=== PATIENT | female | born 1955 | race Caucasian/White ===

== ENCOUNTER → 2022-08-23 15:21 | Outpatient (CLI) | payer MEDICARE, SELFPAY ==
[2022-08-23 16:24] LABS: Add Manual Diff / Slide Review NO; Basophils Absolute Auto 100 /uL (0-100); Basophils Percent Auto 1.3 % (0-2); Eosinophils Absolute Auto 200 /uL (0-450); Eosinophils Percent Auto 3.1 % (2-4); Hematocrit 39.7 % (36-46); Hemoglobin 13.1 g/dL (12.0-16.0); Lymphocytes Absolute Auto 1300 /uL (1100-4500); Lymphocytes Percent Auto 22.7 % (25-40); Mean Corpuscular HGB Conc 33.1 % (30-36); Mean Corpuscular Hemoglobin 29.6 PG (26-34); Mean Corpuscular Volume 89.5 fL (80-100); Monocytes Absolute Auto 400 /uL (0-900); Monocytes Percent Auto 6.6 % (3-14); Neutrophils Absolute Auto 3900 /uL (1500-7000); Neutrophils Percent Auto 66.3 % (50-75); Platelet Count 216 X10^3/uL (150-400); Red Blood Cell Count 4.44 X10^6/uL (4.0-5.2); Red Cell Distribution Width 13.6 % (11.6-14.8); White Blood Cell Count 5.9 X10^3/uL (4.5-11.0)
[2022-08-23 16:45] LABS: BUN Creatinine Ratio 33.3 (6-22); Blood Urea Nitrogen 26 mg/dL (7-17); Calcium 8.6 mg/dL (8.4-10.2); Carbon Dioxide 28 mmol/L (22-32); Chloride 105 mmol/L (98-107); Estimated Glomerular Filt Rate > 60 mL/min (>60); Glucose 94 mg/dL (80-110); HEMOLYSIS < 15 (0-50); Hemoglobin A1C% w Est Avg Glu 4.9 % (4.0-6.0); Sodium 139 mmol/L (137-145)
[2022-08-23 16:48] LABS: Appearance Urine UA CLEAR; Bilirubin Urine UA NEGATIVE (NEGATIVE); Color Urine UA YELLOW; Glucose Urine UA NEGATIVE (Negative); Ketones Urine UA NEGATIVE (NEGATIVE); Leukocyte Esterase Urine UA NEGATIVE (NEGATIVE); Nitrite Urine UA NEGATIVE (Negative); Occult Blood Urine UA NEGATIVE (Negative); Protein Urine UA TRACE (Negative); Specific Gravity Urine UA 1.025 (1.000-1.035); Urobilinogen Urine UA 0.2 E.U./dL (0.2)
[2022-08-23 17:10] LABS: RBC Urine None Seen (0-5/HPF); Squamous Epithelial Cell Urine 1-5 /HPF (0-5/HPF); WBC Urine 0-1/HPF (0-5/HPF)
[2022-08-23 17:11] LABS: Bacteria Urine None Seen; Culture Indicated Urine Cult Not Indicated
== END ==
PROVIDERS: Referring Provider Orthopaedic Surgery; Visit Provider Orthopaedic Surgery
DX: Z01.818 Encounter for other preprocedural examination (principal); R73.9 Hyperglycemia, unspecified; Z01.812 Encounter for preprocedural laboratory examination; N39.0 Urinary tract infection, site not specified
CPT/HCPCS: 36415; 80048; 81001; 83036; 85025; 93005

== ENCOUNTER 2022-11-26 11:53 | Day surgery (SDC) | payer MEDICARE, SELFPAY ==
[2022-11-20 09:43] VITALS: BMI 23.9
[2022-11-26] VITALS (11 sets, daily range): BP systolic 115–171; BP diastolic 49–90; PULSE 62–77; RESP 12–18; TEMP 36.3–36.9; O2SAT 73–100; BMI 23.9
--- NOTE | 2022-11-26 06:00 | DI.RAD.S_ITS ---
PROCEDURE: XR HIP W PEL IF DONE LT 2V INDICATIONS: DOMINGA TECHNIQUE: AP pelvis and lateral view of the left hip acquired. COMPARISON: None. FINDINGS: Bones: Patient is status post left hip arthroplasty, with hardware components in expected positions. The hip joint appears congruent. The visualized bony structures appear intact. Soft tissues: Overlying postoperative changes are noted. No suspicious soft tissue densities. IMPRESSION: Total left hip arthroplasty in good position Approved by: Juan C Castillo M.D. on 11/27/2022 at 15:04
[2022-11-26] MEDS: VANCOMYCIN 1,000 MG/200 ML PIGGYBACK 200 MG IV (12:15)
[2022-11-26] MEDS: ACETAMINOPHEN 325 MG TABLET 975 MG PO (12:25)
[2022-11-26] MEDS: CELECOXIB 200 MG CAPSULE PO (12:25)
[2022-11-26] MEDS: LACTATED RINGERS 1,000 ML 42 ML IV ×2 (12:28→14:18)
--- NOTE | 2022-11-26 12:56 | PM.PREOP ---
Pre-operative Note COVID-19 COVID-19 status: Negative Interval Note History & Physical reviewed/Exam performed by Physician: Yes Changes to H&P: No
--- NOTE | 2022-11-26 12:57 | PM.OP.1 ---
Operative Date/Time/Diagnoses Date of procedure: 11/26/22 Time of procedure: 13:30 Pre-op diagnosis: Left hip osteoarthritis Post-op diagnosis: same Procedure & Clinicians Procedure: Left total hip arthroplasty anterior approach Same procedure as scheduled: Yes Indications: The patient has had progressively worsening left hip pain with radiographic changes consistent with arthritis. Non-operative management has failed and the patient has requested total hip replacement. The risks, benefits and alternatives to surgery were discussed with the patient prior to proceeding. Risks discussed included, but were not limited to, failure to relieve pain, leg length discrepancy, dislocation, stiffness, infection, nerve damage, deep venous thrombosis, pulmonary embolism, stroke, coma, heart attack, permanent paralysis and , as well as the potential need for eventual revision of the prosthetic. Surgeon: Emelia Salazar Ampoule Washing Machine Operator: Paulino Alegria Anesthesia Type: General and Spinal Operative Notes Findings: Severe left hip arthritis, adequate stability Closure Type: primary Specimen(s): none sent Prosthetic devices, grafts, tissues, transplants, or devices: Salazar and nephew size 46 R3, anthology standard offset size 3, neutral poly liner,one 6.5 mm screw, 28 by -3 oxinium Estimated Blood Loss (mL): 250 Blood products transfused: none Procedure in detail: The patient was brought to the operating room. Patient was carefully positioned in the supine position. Time-out was performed and antibiotics were given. Anesthesia was induced. She was positioned in the on the table in order to allow hyperextension of the hip. The left lower extremity was prepped and draped in a standard sterile fashion. An anterior left hip incision was made 1 fingerbreadth lateral to the anterior superior iliac spine and extended distally towards the greater trochanter. Dissection was carried out through skin and subcutaneous tissues. Superficial hemostasis was achieved. The fascia over the tensor fascia derik was defined and incised with a knife. Two Allis clamps were used to grasp the fascia. Tensor fascia derik was retracted laterally. A gelpi retractor was placed. Dissection was carried out down along the neck. The circumflex vessels were carefully identified and cauterized with the Aqua Mantis. There was good visualization of the femoral neck. A Cobra was placed superior to the neck and the gluteus fibers were carefully stripped from that superior aspect of the capsule. A 2nd retractor was placed along the inferior aspect of the neck. The rectus insertion along the capsule was partially released. A 3rd retractor that was then gently placed over the rim of the acetabulum under the rectus. Capsule was carefully incised and released from the intertrochanteric line circumferentially superior to the mid sagittal line and inferiorly to the mid sagittal line until the lesser trochanter was palpable. A tag stitch was placed both in the superior and inferior limb of the capsular insertion. Along the acetabulum capsule was also released up to the mid sagittal 12:00 position. A portion of the labrum was resected. A saw was used to perform an osteotomy at the level of the intertrochanteric line and the junction of the superior femoral neck leaving approximately 1 finger breath of residual inferior neck above the lesser trochanter. A 2nd cut was made along the femoral neck at the base of the head and a napkin ring of neck was removed. Corkscrew was placed in the femoral head and the head was removed without difficulty. Retractors were then repositioned around the acetabulum. Residual labrum was resected and additional osteophytes were removed. A reamer that was 4 mm below the templated size was placed by hand in the acetabulum and it was reamed to centralize the acetabulum. It was then reamed up to 2 under the templated size and fluoroscopy was brought in to confirm the position of the reaming and depth of reaming. I reamed 1 under the anticipated size. A trial cup was placed and noted that it was appropriately sized and fluoroscopy confirmed position and depth. The component was open and inserted without difficulty fluoroscopic imaging was used to confirm that the cup had been adequately seated and was well positioned. It was further stabilized with a single screw. Neutral poly liner was placed. The cup was tested and noted to be stable. Attention was then directed to the femur. The femur was gently hyperextended additional capsular release was performed as needed in order to allow adequate visualization of the proximal femur with elevation of the femur. Patient was placed in a hyperextended slightly adducted position with maximum external rotation. Box osteotome was used to check for any residual neck as well as sclerotic bone along the trochanter. [place] pepper was placed in the femur. Additional broaching was performed. Canal finder was used to determine the alignment of the canal and position. Size 1 broach was placed. The canal was then appropriately broached up to the templated size as long as there was adequate stability of the broach and serial advancement of the broach without excessive impingement. Specific attention was directed at avoiding varus attempting to direct the distal aspect of the broach more anteriorly and avoiding excessive anteversion. Trial reduction showed acceptable range of motion, good stability, no posterior impingement, mosque of leg length and appropriate lateral shuck. I also hyperflexed the hip and checked that there was no impingement anteriorly and there was good stability with flexion, adduction and internal rotation. Marcaine and Exparel were injected. The stem was placed without difficulty. Repeat trial reduction and x-ray showed acceptable overall position, length, and no evidence of the femoral fracture. Final head was placed. Wound was meticulously irrigated with normal saline. The hip was reduced and additional Exparel and Marcaine were injected. The capsule was closed with interrupted nonabsorbable sutures. The fascia of the tensor was closed with interrupted and running Vicryl. No drain was placed. Any tensor fascia derik muscle that appeared to be contused or injured which was a minimal amount was carefully resected. Capsule around the tensor was injected with Exparel and Marcaine. The skin was closed with barbed stitches for the subcutaneous tissue and skin. We also used surgical glue. The wound was dressed sterilely. Brief Betadine soak was also used and was meticulously irrigated with normal saline. Patient was transferred to recovery room in satisfactory condition. Complications: none Post-operative Condition: stable Disposition: Acute Care Plan for aftercare: The patient will be maintained on a standard total hip replacement protocol with weight bearing as tolerated and anterior hip precautions. The patient will receive Aspirin and sequential compression devices for DVT prophylaxis. The patient will be discharged home when safe for the home environment.
[2022-11-26] MEDS: CEFAZOLIN 2 GM/100 ML PREMIX 100 ML IV ×2 (13:20→20:28)
--- NOTE | 2022-11-26 13:57 | SUR.OPER ---
Right foot previous injury, multiple bruising sites from toes across foot.
--- NOTE | 2022-11-26 14:00 | SUR.OPER ---
Patient supine on padded [place] table, one arm on padded arm board at <90, other arm padded and secured with tape across patient's chest, both legs secured in padded traction boots and positioned per surgeon, padded post at patient's groin, pressure points checked and padded.
[2022-11-26] MEDS: BUPIVACAINE LIPOSOME 266 MG/20 ML VIAL INJ (14:14)
[2022-11-26] MEDS: TRANEXAMIC ACID 1,000 MG VIAL 2000 MG INJ ×2 (14:19→15:24)
[2022-11-26] MEDS: BUPIVACAINE 0.25% (PF) VIAL 60 ML INJ (14:20)
[2022-11-26] MEDS: BUPIVACAINE 0.25% (PF) 60 ML, EPINEPHrine 0.3 MG INJ (14:21)
[2022-11-26] MEDS: SODIUM CHLORIDE IRRIG SOLUTION 250 ML, POVIDONE-IODINE SPONGE STICKS 1 APPLIC IRR (15:23)
--- NOTE | 2022-11-26 15:48 | DI.RAD.S_ITS ---
PROCEDURE: [id number] W PEL IF PERFORMED INDICATIONS: INTEROPERATIVE TOTAL LEFT HIP ANTERIOR APPROACH TECHNIQUE: AP pelvis with lateral view(s) of the left hip(s). [facility]26/[facility]22, 15:45. FINDINGS: Fluoroscopic guidance utilized for a left total hip arthroplasty placement. IMPRESSION: Fluoroscopic guidance utilized for a left total hip arthroplasty placement. Dictated by: Saw Zarate M.D. on 11/26/2022 at 17:03 Approved by: Saw Zarate M.D. on 11/26/2022 at 17:04
--- NOTE | 2022-11-26 15:57 | SUR.PHASEI ---
Report given to Gita
[2022-11-26 16:08] LABS: COVID19 -Nasal RAPID Negative (Negative)
--- NOTE | 2022-11-26 16:19 | SUR.PHASEI ---
Report called to Penelope Mccann.
--- NOTE | 2022-11-26 16:37 | SUR.PHASEI ---
Patient transferred to the floor with her belongings bag and black bag. Report given to Penelope Batista VS stable. Dressing CDI. IV patent.
[2022-11-26] MEDS: IBUPROFEN 400 MG TABLET PO (17:59)
[2022-11-26] MEDS: LACTATED RINGERS 1,000 ML 125 ML IV (18:00)
[2022-11-26] MEDS: OXYCODONE IR 5 MG TABLET PO (18:00)
[2022-11-26] MEDS: ACETAMINOPHEN 325 MG TABLET 650 MG PO (18:00)
[2022-11-26] MEDS: OXYCODONE IR 10 MG TABLET PO (19:28)
[2022-11-26] MEDS: DOCUSATE 100 MG CAPSULE PO (20:27)
[2022-11-26] MEDS: ASPIRIN EC 81 MG TABLET PO (20:27)
--- NOTE | 2022-11-26 23:40 | PC.NURSE ---
Patient is alert and oriented. Breath sounds CTA with RA sat of 98%. HRR. Denies nausea. BT hypoactive and has not passed flatus; reports having had BM just prior to surgery. Had not voided since pre-op so was gotten out of bed with 2 assists + walker and voided 500cc. When getting out of bed kept leaning forward and became very sweaty and pale. Needing lots of instruction and cueing so placed on external catheter once back in bed. Is able to turn self; staff assists as needed to place pillows. Aquacel dressing is CDI. Was given pain medication at shift change and stated pain was much improved. CMS intact except for minimal numbness in left foot and is unable to lift leg off bed. Has abrasions and bruising on right foot/lower leg from dropping a table on her foot prior to admission. Wearing bilateral calf SCD's. Fall risk score is moderate and bed alarm is activated.
[2022-11-27] MEDS: IBUPROFEN 400 MG TABLET PO ×3 (00:04→12:57)
[2022-11-27] MEDS: ACETAMINOPHEN 325 MG TABLET 650 MG PO ×3 (00:04→12:57)
[2022-11-27 01:46] VITALS: BP 137/62; PULSE 72; RESP 18; TEMP 36.3; O2SAT 98
[2022-11-27] MEDS: LACTATED RINGERS 1,000 ML 125 ML IV (02:35)
[2022-11-27] MEDS: CEFAZOLIN 2 GM/100 ML PREMIX 100 ML IV (03:34)
[2022-11-27 05:10] VITALS: BP 132/60; PULSE 68; RESP 17; TEMP 36.1; O2SAT 98
[2022-11-27 06:09] LABS: Hematocrit 29.3 % (36-46); Hemoglobin 9.9 g/dL (12.0-16.0)
--- NOTE | 2022-11-27 07:05 | P.DS_ITS ---
History of Present Illness History of Present Illness Date Patient Seen: 11/27/22 Time Patient Seen: 07:05 Chief complaint: Hip pain Narrative: Hip pain has been [id number]. Denies fever or chills. No nausea vomiting. Patient does have somebody available to assist her at home. Discharge Providers Provider Discharge Date: 11/27/22 Primary care physician: Faustino Warner MD Consults: 11/26/22 06:00 Consult to Anesthesiology Routine Comment: Consulting Provider: Anesthesiologist Reason for consultation: Regional block for post operative pain control 11/26/22 16:38 Consult to Discharge Planning Routine Comment: Consult to Physical Therapy Evaluate & Treat Comment: Physician Instructions: post op DOMINGA protocol Discharge provider: Paulino Alegria PA-C Summary Hospital Course Discharge Diagnosis: Severe left hip osteoarthritis Hospital Course: Left total hip arthroplasty anterior approach Same procedure as scheduled: Yes Indications: The patient has had progressively worsening left hip pain with radiographic changes consistent with arthritis. Non-operative management has failed and the patient has requested total hip replacement. The risks, benefits and alternatives to surgery were discussed with the patient prior to proceeding. Risks discussed included, but were not limited to, failure to relieve pain, leg length discrepancy, dislocation, stiffness, infection, nerve damage, deep venous thrombosis, pulmonary embolism, stroke, coma, heart attack, permanent paralysis and , as well as the potential need for eventual revision of the pro sthetic. Surgeon: Emelia Salazar Process Controls Technician: Paulino Alegria Anesthesia Type: General and Spinal Operative Notes Findings: Severe left hip arthritis, adequate stability Closure Type: primary Specimen(s): none sent Prosthetic devices, grafts, tissues, transplants, or devices: Salazar and nephew size 46 R3, anthology standard offset size 3, neutral poly liner,one 6.5 mm screw, 28 by -3 oxinium Estimated Blood Loss (mL): 250 Blood products transfused: none Patient admitted to the hospital for left total hip arthroplasty, anterior approach. Patient consented to the same. Patient taken operating room on November 26, 2022 underwent left total hip arthroplasty, anterior approach. Patient back in her room recovering well as in stable condition. Patient to mobilize with physical therapy. Weightbearing as tolerated with anterior hip precautions. Discharge home today after physical therapy if safe for home environment. Exam Vital Signs (past 8 hours): - 11/27/22 01:46 11/27/22 05:10 Temperature 97.3 F L 97.0 F L Pulse Rate 72 68 Respiratory Rate 18 17 Blood Pressure 137/62 132/60 Pulse Oximetry 98 98 Oxygen Flow Rate 0 0 Oxygen Delivery Method Room Air Oxygen Flow Rate 0 Narrative Exam Narrative: Pleasant 67-year-old female resting comfortably in bed in no apparent distress. Left hip dressing is clean, dry and intact. Motor functions intact bilateral lower extremities. Sensation grossly intact to light touch bilateral lower extremities. Const General: cooperative and comfortable Orientation: alert Resp Effort & Inspection: normal respiratory effort and able to speak in complete sentences Objective Labs 11/27/22 05:20 Labs: Laboratory Results - last 24 hr 11/26/22 11/27/22 15:45 05:20 Hgb 9.9 L Hct 29.3 L SARS-CoV-2 (PCR) Negative [facility] Medical History Anesthesia complication COVID-19 virus infection (04/2022) Depression Easy bruisability Fibromyalgia Foot injury (~11/10/22) DAWNA (obstructive sleep apnea) Osteoarthritis Pre-diabetes Seasonal allergies Surgical History History of carpal tunnel surgery of left wrist History of carpal tunnel surgery of right wrist History of uvulopalatopharyngoplasty Hx of dilation and curettage Social History household members: none Smoking Status: Never smoker alcohol intake: current Discharge Assessment & Plan Assessment and Plan Assessment: Patient progressing as expected status post left total hip arthroplasty, anterior approach Plan of Treatment: Weight-bearing as tolerated, anterior hip precautions Multimodal pain management Discharge home today after physical therapy if safe for home environment. Discharge Plan Discharge Plan Patient Disposition: Home Discharge orders & Medications Discharge Orders: Discharge (Order); Ordered 11/27/22 Ordered By: Paulino Alegria Prescriptions: New acetaminophen 325 mg Tablet 650 mg PO Q6HR Qty: 60 0RF aspirin 81 mg Tablet,Delayed Release (Dr/Ec) 81 mg PO BID Qty: 60 0RF ibuprofen 400 mg Tablet 400 mg PO Q6HR Qty: 60 0RF docusate sodium 100 mg Capsule 100 mg PO BID Qty: 10 0RF Discontinued aspirin 325 mg Tablet 650 mg PO BID Patient Comments: alternating with Ibuprofen ibuprofen 200 mg Tablet 400 mg PO BID Follow up/Referrals: Faustino Warner MD [Primary Care Provider] - Emelia Salazar MD [Physician] - (2 weeks as scheduled) Diet/Activity/Treatments Diet: Diet as Tolerated Activity: Weight-bearing as tolerated, anterior hip precautions Cold/Heat Therapy: Ice as needed Skin/Wound/Dressing Care Report to your healthcare provider any signs of infection, such as:: chills, fever, night sweats, increased pain, unusual drainage and unusual redness Dressing: Keep dressing clean and dry Visit Report/Discharge Packet Instructions: DI for Hip Replacement Stand Alone Forms: Patient Portal/API, Surgery Discharge Discharge Data Primary Care Provider: Faustino Warner Attending Provider: Emelia Salazar Quality VTE Deep Vein Thrombosis/Pulmonary Embolism Present on Admission: No
--- NOTE | 2022-11-27 09:41 | PT.IIE ---
Current Diagnoses Unilateral primary osteoarthritis, left hip (11/26/22) Surgery Performed Operation Date: 11/26/22 13:45 Actual Procedures p Total Hip Arthroplasty/Anterior Approach(Left) - Emelia Salazar MD Surgical History (Last Reviewed 11/27/22 @ 07:07 by Paulino Alegria PA-C) History of carpal tunnel surgery of left wrist History of carpal tunnel surgery of right wrist History of uvulopalatopharyngoplasty Hx of dilation and curettage Medical History (Last Reviewed 11/27/22 @ 07:07 by Paulino Alegria PA-C) Anesthesia complication COVID-19 virus infection (04/2022) Depression Easy bruisability Fibromyalgia Foot injury (~11/10/22) DAWNA (obstructive sleep apnea) Osteoarthritis Pre-diabetes Seasonal allergies Physical Therapy Inpatient Evaluation/Re-Eval M1 PT/OT-IP Prior Functional Status Start: 11/27/22 08:18 Freq: NEEDED Status: Active Protocol: Document 11/27/22 09:41 DLM (Rec: 11/27/22 09:57 DLM [id number]) Medical Review Prior Functional Status Medical History Reviewed Yes Diet/Fluid Consistency Regular Communication WFL, glasses for reading Mobility and Gait Independent without device, likes to walk but distances have been limited due to hip pain before surgery Activities of Daily Living and IADL's Independent Social History Household Members none Living Arrangements House Number of Floors (Floors) One Floor Number of Stairs To Enter/Railing? none Home Environment Tub/Shower Home Equipment Front Wheel Walker Employment Status Retired Additional Social History Comment she has a friend from [place] who will stay with her at discharge to help, friend has home health background M2 PT-IP Current Condition Start: 11/27/22 08:18 Freq: NEEDED Status: Active Protocol: Document 11/27/22 09:41 DLM (Rec: 11/27/22 09:57 DLM [id number]) Physical Therapy Current Condition Current Condition Evaluation Date 11/27/22 Treatment Diagnosis left total hip arthroplasty with anterior approach, impaired gait and pain Onset Date 11/26/22 M3 PT-IP Subjective Start: 11/27/22 08:18 Freq: NEEDED Status: Active Protocol: Document 11/27/22 09:41 DLM (Rec: 11/27/22 09:57 DLM [id number]) Subjective Physical Therapy Visit Type Type Initial Evaluation Visit Start Time 09:00 Visit Stop Time 09:41 Total Visit Minutes 41 Number of STATEMENT PROCESSOR Visits 0 Physical Therapy Visit Comments Patient Comments She does not feel she is ready to go home. She did not sleep well due to the bed making noise. She reports feeling like she has no control over her leg Patient Goals Discharge home with friend to assist Therapy Pain Assessment Pain When Pain Assessed After Treatment Pain Present Pain Present Pain Reported Location Left Anterior Hip Intensity 6 Scale Used Numeric (0 - 10) Description Aching,Tender,With Movement Pain Behaviors Facial Grimacing,Guarding Pain Management Techniques Apply Cold,Re-positioning M4 PT-IP Mobility and Gait Start: 11/27/22 08:18 Freq: NEEDED Status: Active Protocol: Document 11/27/22 09:41 DLM (Rec: 11/27/22 09:57 DL [id number]) PT-Bed Mobility Assessment Supine to Sit Supine to Sit Minimal Assistance Sit to Supine Sit to Supine Minimal Assistance Scooting Scooting to Edge of Bed Independent PT-Transfer Assessment Sit to and From Stand Sit to and from Stand Standby Assistance,Use of Upper Extremities Equipment Transfer Assistive Device Gait Belt,Front Wheeled Walker Transfers Transfer Destination Bed,Chair Transfer Technique Stand Step Pivot Transfer Ability Level of Assist Standby Assistance,Use of Upper Extremities Comments Mobility Comments She needs assistance to get left LE in and out of bed. She does better on left side of bed than right which is the side she will be using at home . She needs verbal cues to use UE assist to assist with sit- stand. She has increased pain sitting in the recliner if she does not kick left LE out before sitting. Pt left up in recliner with feet up and ice in incisional area. Gait Assessment Gait Gait Assistance Required: Standby Assistance Distance (Feet) 50 Able to Maintain Weight Bearing Status Yes During Gait Assistive Devices Assistive Device Gait Belt,Front Wheeled Walker Gait Deviations General Gait Pattern Antalgic,Decreased Stride Length Factors Limiting Gait Function Factors Limiting Gait Function Decreased Activity Tolerance, Decreased Strength,Difficulty Following Directions,Pain,Poor Balance Comments Gait Comments She demonstrates safe use of FWW, she is able to use her UE 's to assist with weight bearing to manage her pain, she has difficulty lifting Left LE off floor due to anterior hip pain Stair Climbing Assessment Comments Stair Climbing Comments she has no steps she has to negotiate at home to get in her one level house, she will not be doing the steps up to the tub at this time PT-Balance Assessment Sitting Balance and Reactions Static Sitting Balance Ability Normal Dynamic Sitting Balance Ability Normal Standing Balance and Reactions Static Standing Balance Ability Good Dynamic Standing Balance Ability Good Device Used FWW M5 PT-IP Objective Assessments Start: 11/27/22 08:18 Freq: NEEDED Status: Active Protocol: Document 11/27/22 09:41 DLM (Rec: 11/27/22 09:57 DL [id number]) Orientation Orientation/Cognition Level of Alertness Alert Orientation Name,Age,Birthday,Month,Date, Year,Day of Week,Place, Situation Language Function Ability No Deficits Noted Safety Awareness Understands Safety Issues Memory Description No Deficits Noted Gross Range of Motion Upper Extremity ROM Assessment Within Functional Limits Lower Extremity ROM Assessment Left Impaired Impairments anterior hip precautions, pain with hip flexion and end range knee flexion on left Strength Upper Extremity Strength Assessment Within Functional Limits Lower Extremity Strength Assessment Left Impaired Hip hip flex 2+/5 Knee knee ext 4+/5, flex 4-/5 Ankle DF 5/5 Comments Strength Comments pain limits left LE strength Coordination Assessment Gross Coordination Gross Coordination WNL Sensation Assessment Sensation Gross Sensation WNL Comments Sensation Comments swelling in left thigh area post-op, mild bruising Muscle Tone Muscle Tone WNL Yes M6 PT-IP Treatment Start: 11/27/22 08:18 Freq: NEEDED Status: Active Protocol: Document 11/27/22 09:41 DLM (Rec: 11/27/22 09:57 DL [id number]) Physical Therapy Treatment Exercises Exercises Ankle Pumps,Gluteal Sets,Quad Sets,Heel Slides Education Education Provided Precautions,Weight Bearing Status,Post-Op Packet,Safety Equipment Issued Equipment Type and Company she reports she has a FWW to use at home M7 PT-IP Assessment and Plan Start: 11/27/22 08:18 Freq: NEEDED Status: Active Protocol: Document 11/27/22 09:41 DLM (Rec: 11/27/22 09:57 DLM [id number]) PT Summary Assessment and Plan Assessment: Tia is alert and resting in bed this visit. She is motivated to get up with physical therapy. She wants to be able to discharge home with her friend to help. Tia needs assistance getting her left LE in/out of bed due to pain and weakness. She needs SBA for transfers and gait with the FWW. She tolerated gait well in her room. She has no stairs she has to do at home at this time. Pt left up in the recliner. She reports increased left hip area pain to a 6/10 after activity. She reports she does not feel ready to go home yet. Informed her nurse of pain issues after activity. I am hopeful pt will be ready for discharge home later today when her pain improves. Potential Rehabilitation Potential Excellent Status of Condition at Evaluation Evolving Summary Impairments Pain,ROM,Strength,Balance,Bed Mobility,Transfers,Gait, Activity Tolerance Goals Bed Mobility Goal Standby Assistance Transfer Goal Independent,Front Wheeled Walker Gait Goal Independent,Front Wheel Walker Gait Distance 100 feet Days to Meet Goals 2 Frequency of Treatment Frequency Of Treatment Twice a Day Treatment Plan Physical Therapy Treatment Plan Bed Mobility Training,Transfer Training,Gait Training, Therapeutic Exercise,Post Op Education,Discharge Planning, Hot or Cold Pack Precautions Anterior Hip Precautions No Hip Extension,No Hip External Rotation Weight Bearing Status Weight Bearing Status Weight Bear as Tolerated Recommendations To Nursing Amount of Assist Needed 1 Person Assist Discharge Recommendations PT Discharge Recommendations Home with Assistance Other Discharge Recommendations her friend is available to assist her at home, will stay with her Transportation Needs at Discharge Private Vehicle
[2022-11-27 09:42] VITALS: BP 122/52; PULSE 79; RESP 16; TEMP 37.6; O2SAT 99
[2022-11-27] MEDS: OXYCODONE IR 10 MG TABLET PO ×2 (09:57→13:58)
[2022-11-27] MEDS: DOCUSATE 100 MG CAPSULE PO (09:58)
[2022-11-27] MEDS: ASPIRIN EC 81 MG TABLET PO (09:58)
--- NOTE | 2022-11-27 14:12 | PT.IPTN ---
Current Diagnoses Unilateral primary osteoarthritis, left hip (11/26/22) Surgery Performed Operation Date: 11/26/22 13:45 Actual Procedures p Total Hip Arthroplasty/Anterior Approach(Left) - Emelia Salazar MD Physical Therapy Treatment Note M2 PT-IP Current Condition Start: 11/27/22 08:18 Freq: NEEDED Status: Active Protocol: Document 11/27/22 09:41 DLM (Rec: 11/27/22 09:57 DLM [id number]) Physical Therapy Current Condition Current Condition Evaluation Date 11/27/22 Treatment Diagnosis left total hip arthroplasty with anterior approach, impaired gait and pain Onset Date 11/26/22 M3 PT-IP Subjective Start: 11/27/22 08:18 Freq: NEEDED Status: Active Protocol: Document 11/27/22 14:12 DLM (Rec: 11/27/22 15:08 DLM [id number]) Subjective Physical Therapy Visit Type Type Treatment Note Visit Start Time 13:30 Visit Stop Time 14:12 Total Visit Minutes 42 Number of SILVER BRAZER Visits 0 Physical Therapy Visit Comments Patient Comments She is surprised by how hard it is to move her left leg. Taking more pain medication after last treatment session helped. Patient Goals discharge home Therapy Pain Assessment Pain When Pain Assessed After Treatment Pain Present Pain Present Pain Reported Location Left Anterior Hip Intensity 6 Scale Used Numeric (0 - 10) Description Aching,With Movement Pain Behaviors Guarding Pain Management Techniques Apply Cold,Re-positioning, Timing of Activity with Medications M4 PT-IP Mobility and Gait Start: 11/27/22 08:18 Freq: NEEDED Status: Active Protocol: Document 11/27/22 14:12 DLM (Rec: 11/27/22 15:08 DLM [id number]) PT-Bed Mobility Assessment Supine to Sit Supine to Sit Minimal Assistance Sit to Supine Sit to Supine Minimal Assistance Scooting Scooting to Edge of Bed Standby Assistance PT-Transfer Assessment Sit to and From Stand Sit to and from Stand Standby Assistance,Use of Upper Extremities Equipment Transfer Assistive Device Gait Belt,Front Wheeled Walker Transfers Transfer Destination Bed,Chair,Toilet Transfer Technique Stand Step Pivot Transfer Ability Level of Assist Standby Assistance,Use of Upper Extremities Comments Mobility Comments She needs assistance to get left LE in and out of bed with functional weakness and pain. She tolerated sitting up in the recliner well today. She reports better pain management when she kicks left LE out during sit-stand due to thigh/ hip area pain. Pt used the rail on the wall during toilet transfers. Gait Assessment Gait Gait Assistance Required: Standby Assistance Distance (Feet) 150 Able to Maintain Weight Bearing Status Yes During Gait Assistive Devices Assistive Device Gait Belt,Front Wheeled Walker Gait Deviations General Gait Pattern Antalgic,Decreased Stride Length Factors Limiting Gait Function Factors Limiting Gait Function Decreased Activity Tolerance, Decreased Strength,Limited Range of Motion,Pain Comments Gait Comments she demonstrates safe use of the FWW for gait, she has difficulty lifting left foot for steps but can clear her foot at this time Stair Climbing Assessment Comments Stair Climbing Comments she only has steps into the tub, verbally reviewed step-to stair pattern which she reports is what she was doing before surgery PT-Balance Assessment Sitting Balance and Reactions Static Sitting Balance Ability Normal Dynamic Sitting Balance Ability Good Standing Balance and Reactions Static Standing Balance Ability Good Dynamic Standing Balance Ability Good Device Used FWW M5 PT-IP Objective Assessments Start: 11/27/22 08:18 Freq: NEEDED Status: Active Protocol: Document 11/27/22 09:41 DLM (Rec: 11/27/22 09:57 DLM [id number]) Orientation Orientation/Cognition Level of Alertness Alert Orientation Name,Age,Birthday,Month,Date, Year,Day of Week,Place, Situation Language Function Ability No Deficits Noted Safety Awareness Understands Safety Issues Memory Description No Deficits Noted Gross Range of Motion Upper Extremity ROM Assessment Within Functional Limits Lower Extremity ROM Assessment Left Impaired Impairments anterior hip precautions, pain with hip flexion and end range knee flexion on left Strength Upper Extremity Strength Assessment Within Functional Limits Lower Extremity Strength Assessment Left Impaired Hip hip flex 2+/5 Knee knee ext 4+/5, flex 4-/5 Ankle DF 5/5 Comments Strength Comments pain limits left LE strength Coordination Assessment Gross Coordination Gross Coordination WNL Sensation Assessment Sensation Gross Sensation WNL Comments Sensation Comments swelling in left thigh area post-op, mild bruising Muscle Tone Muscle Tone WNL Yes M6 PT-IP Treatment Start: 11/27/22 08:18 Freq: NEEDED Status: Active Protocol: Document 11/27/22 14:12 DLM (Rec: 11/27/22 15:08 DLM [id number]) Physical Therapy Treatment Exercises Exercises Ankle Pumps,Gluteal Sets,Quad Sets,Heel Slides Education Education Provided Precautions,Weight Bearing Status,Post-Op Packet,Safety Other Treatments Other Treatment Performed Her friend is present this visit and demonstrates her ability to assist Tia. M7 PT-IP Assessment and Plan Start: 11/27/22 08:18 Freq: NEEDED Status: Active Protocol: Document 11/27/22 14:12 DLM (Rec: 11/27/22 15:08 DLM [id number]) PT Summary Assessment and Plan Summary Impairments Pain,ROM,Strength,Balance,Bed Mobility,Transfers,Gait, Activity Tolerance Progress Towards Goals Progressing Toward Goals,Safe For Discharge Assessment Summary Tia is alert and sitting up in the recliner this visit. Her friend is present and participated in this therapy visit. Tia shows good progress with her mobility and gait. She appears safe to discharge home with her friend to assist her. Notified her nurse that she is cleared by PT to discharge home when medically cleared. Goals Bed Mobility Goal Standby Assistance Transfer Goal Independent,Front Wheeled Walker Gait Goal Independent,Front Wheel Walker Gait Distance 100 feet Days to Meet Goals 2 Treatment Plan Other Recommendations and Next Treatment anticipate discharge later Focus today Precautions Anterior Hip Precautions No Hip Extension,No Hip External Rotation Weight Bearing Status Weight Bearing Status Weight Bear as Tolerated Recommendations To Nursing Amount of Assist Needed 1 Person Assist Discharge Recommendations PT Discharge Recommendations Home with Assistance Other Discharge Recommendations Her friend will stay with her and assist Transportation Needs at Discharge Private Vehicle
--- NOTE | 2022-11-27 15:06 | PC.NURSE ---
Discharge: Pt feels ready to d/c to home. D/c instructions reviewed and understood. PA in to see pt and given d/c instructions. PT here and gave d/c instructions to patient and she did pass PT. She is following her ant hip precautions. Tolerates diet w/out problems. Vds w/out diff. Po pain meds are effective. Discharge packet given. Questions answered. Pt's friend here as well and spoke with PT about how she can best assist pt at home. No concerns voiced at the time of discharge. Pt d/c to home via auto w/friend.
== END 2022-11-27 14:52 | disposition home or self-care (01) ==
LOC: OR 11:55 → AC 13:15
PROVIDERS: PCP Family Medicine; Referring Provider Family Medicine; Visit Provider Orthopaedic Surgery
PROC: (CPT 27130; principal; 2022-11-26 13:45)
DX: M16.12 Unilateral primary osteoarthritis, left hip (principal); Z20.822 Contact with and (suspected) exposure to COVID-19
CPT/HCPCS: 27130; 36415; 73502; 73503; 76000; 85014; 85018; 87635; 97110; 97116; 97162; 97530; C1776; C9803; C9290; J0171; J0690; J1100; J2250; J2405; J2704; J3010; J3490

== ENCOUNTER → 2023-12-06 09:49 | Outpatient (CLI) | payer MEDICARE, SELFPAY ==
[2022-11-26 17:04] VITALS: BMI 23.9
--- NOTE | 2023-12-06 09:50 | DI.MRI.S_ITS ---
PROCEDURE: MR ANKLE RT WO CON INDICATIONS: Achilles tendinitis, right leg TECHNIQUE: Noncontrast sagittal T1 spin echo and T2 fast spin echo with fat saturation, axial proton density fast spin echo and T2 fast spin echo with fat saturation, coronal T1 spin echo and T2 fast spin echo with fat saturation through the ankle/hindfoot. COMPARISON: [facility], [facility], XR FOOT 3 VIEWS WEIGHT BEARING RIGHT, 11/25/2023, 14:35. FINDINGS: Image quality: Excellent. Bones and joints: No acute trabecular bone injury or fracture. No hindfoot coalitions. Small chronic osteochondral lesion is seen at the medial talar dome measuring approximately the 7 x 5 x 3 mm with subchondral cystic changes and mild subchondral edema as well as overlying cartilage loss. No disruption of the subchondral plate or loose osteochondral fragment is seen. Mild degenerative spurring at the dorsal talonavicular articulation. Medial structures: The deltoid ligament and the spring ligament complex are intact. The posterior tibialis tenosynovitis. The flexor digitorum longus and flexor hallucis longus tendons are intact. The posterior tibial neurovascular bundle appears normal within the tarsal tunnel, without extrinsic mass effect. Lateral structures: Remote prior low-grade sprain of the anterior talofibular ligament. The posterior talofibular ligament and the calcaneofibular ligament are intact. The anterior and posterior tibiofibular ligaments are intact. There is partial intrasubstance tearing of the peroneus brevis tendon at the level of the distal fibula with distal tendon reconstitution at the level of the retrotrochlear eminence. Mild peroneus longus tendinosis. Mild peroneus brevis and longus tenosynovitis. The sinus tarsi demonstrates normal fatty signal. Anterior structures: The tibialis anterior, extensor hallucis longus, and extensor digitorum longus tendons appear intact. Posterior and plantar structures: Mild Achilles tendinosis. Focal osseous and soft tissue edema is seen at the posterior lateral calcaneus at the Achilles tendon insertion. A small posterior enthesophyte is present. Small nonedematous plantar calcaneal enthesophyte is also seen. The proximal plantar fascia is intact. No abductor digiti minimi muscle atrophy to suggest Dodge neuropathy. IMPRESSION: 1. Mild focal osseous and soft tissue edema at the posterior lateral calcaneus involving the Achilles tendon insertion, which may represent focal low-grade partial tendon tearing, traction-related trabecular bone injury, mild osseous contusion, and/or retro-Achilles bursitis. 2. Partial intrasubstance tearing of the distal peroneus brevis tendon at the level of the distal fibula with tendon reconstitution at the level of the retrotrochlear eminence. 3. 4. Remote prior low-grade sprain of the anterior talofibular ligament. 5. Chronic osteochondral lesion at the medial talar dome measuring 7 x 5 x 3 mm subchondral cystic changes and edema and overlying cartilage loss. No loose osteochondral fragment. 6. Mild posterior tibialis tenosynovitis. Approved by: Renzo Tavera M.D. on 12/08/2023 at 10:37
== END ==
LOC: MRI 09:49
PROVIDERS: PCP Family Medicine; Referring Provider Orthopaedic Surgery Foot and Ankle Surgery; Visit Provider Orthopaedic Surgery Foot and Ankle Surgery
DX: M76.61 Achilles tendinitis, right leg (principal); S96.811A Strain of other specified muscles and tendons at ankle and foot level, right foot, initial encounter; S93.491A Sprain of other ligament of right ankle, initial encounter; M65.871 Other synovitis and tenosynovitis, right ankle and foot; M89.9 Disorder of bone, unspecified
CPT/HCPCS: 73721